=== PATIENT | male | born 1950 | race Caucasian/White ===

== ENCOUNTER → 2016-07-17 | Outpatient (CLI) | payer MEDICARE ==
[~2016-07-17] MED LIST: /WARF5TA OR; ACET-654 PO; ACET65TA OR; ASPI81TA83 PO; CALCCHW12 PO; CALCTAB28 PO; CENTRUM SILVER PO; CIPRO; DOCU10CA PO; ECOT81TA5 PO; FOSAMAX PO; LISI20TA PO; LISI20TA5 PO; MULTCAP PO; MULTIVIT PO; NABUMETONE PO; NABUPOW PO; PERC5TAB6 PO; SIMV20TA2 PO; SIMV40TA2 PO; VICO5TAB OR; VITAMIN B1; VITAMIN B12 PO
== END ==
LOC: M SMT 09:49
PROVIDERS: ATTEND Urology
DX: Z85.46 Personal history of malignant neoplasm of prostate (principal)

== ENCOUNTER → 2016-08-07 | Outpatient (CLI) | payer MEDICARE ==
[~2016-08-07] VITALS: Ht 170.2 cm; Wt 97.5 kg
[~2016-08-07] MED LIST changes: +B6 N1TAB PO; +NABU750T PO; +NEUR100C PO; +NS 1,000 ML IV ONE
--- NOTE | 2016-08-07 09:48 | ROOR ---
Patient Name: Merrick Capps Procedure Date: 08/07/2016 9:32 AM Date of : 1950 Age: 66 Room: [facility] Gender: Male Note Status: Finalized Procedure: Colonoscopy Indications: Screening for colorectal malignant neoplasm Providers: Luigi QUIGLEY MD Referring MD: SONYA CONSTANTINO Requesting Provider: Medicines: Monitored Anesthesia Care Complications: No immediate complications. Procedure: Pre-Anesthesia Assessment: - The heart rate, respiratory rate, oxygen saturations, blood pressure, adequacy of pulmonary ventilation, and response to care were monitored throughout the procedure. The Colonoscope was introduced through the anus and advanced to the cecum, identified by appendiceal orifice and ileocecal valve. The colonoscopy was performed without difficulty. The patient tolerated the procedure well. The quality of the bowel preparation was good. Findings: The perianal and digital rectal examinations were normal. Anal papilla(e) were hypertrophied. Internal hemorrhoids were found during retroflexion. The hemorrhoids were medium-sized. Multiple diverticula were found in the sigmoid colon. The entire examined colon appeared normal on direct and retroflexion views. Impression: - Anal papilla(e) were hypertrophied. - Moderate internal hemorrhoids. - Mild to moderate diverticulosis in the sigmoid colon. - The entire colon is otherwise normal on direct and retroflexion views. - No specimens collected. Recommendation: - Repeat colonoscopy in 5 years for surveillance based on personal history of previous adenomatous polyps. Luigi Quigley MD Luigi QUIGLEY MD 08/07/2016 9:47:31 AM This report has been signed electronically. Number of Addenda: 0 Note Initiated On: 08/07/2016 9:32 AM Estimated Blood Loss: Estimated blood loss: none.
[2016-08-07 10:05] VITALS: BP 133/90
== END | disposition home or self-care (01) ==
LOC: M OPP 08:14
PROVIDERS: ATTEND Internal Medicine Gastroenterology
DX: Z12.11 Encounter for screening for malignant neoplasm of colon (principal); K64.8 Other hemorrhoids; K57.30 Diverticulosis of large intestine without perforation or abscess without bleeding; K62.89 Other specified diseases of anus and rectum; Z86.010 Personal history of colon polyps; I10 Essential (primary) hypertension; E78.5 Hyperlipidemia, unspecified; Z86.19 Personal history of other infectious and parasitic diseases; M19.90 Unspecified osteoarthritis, unspecified site; M54.9 Dorsalgia, unspecified; M81.0 Age-related osteoporosis without current pathological fracture; G62.9 Polyneuropathy, unspecified; Q78.0 Osteogenesis imperfecta; Z85.828 Personal history of other malignant neoplasm of skin; Z85.46 Personal history of malignant neoplasm of prostate; Z87.828 Personal history of other (healed) physical injury and trauma; Z86.79 Personal history of other diseases of the circulatory system; Z91.013 Allergy to seafood; Z79.82 Long term (current) use of aspirin; Z79.899 Other long term (current) drug therapy

== ENCOUNTER → 2017-01-21 | Outpatient (CLI) | payer MEDICARE ==
[~2017-01-21] MED LIST changes: -ACET-654 PO; +ACET1TAB17 PO; -NS 1,000 ML IV ONE; +PERC5TAB12 PO; -PERC5TAB6 PO
== END ==
LOC: M SMT 10:10
PROVIDERS: ATTEND Urology
DX: Z85.46 Personal history of malignant neoplasm of prostate (principal)

== ENCOUNTER → 2017-07-21 | Outpatient (CLI) | payer MEDICARE ==
[2017-07-21 13:48] LABS: PROSTATIC SPECIFIC AG MONITOR 0.05 NG/ML (< 4.0)
== END ==
LOC: M SMT 10:06
DX: Z85.46 Personal history of malignant neoplasm of prostate (principal)
CPT/HCPCS: 84153

== ENCOUNTER 2017-08-23 09:58 | Emergency (ER) | payer MEDICARE | END 2017-08-23 10:46 | disposition home or self-care (01) | LOC: M ED 09:58 | DX: L03.116 Cellulitis of left lower limb (principal); I10 Essential (primary) hypertension; Z85.828 Personal history of other malignant neoplasm of skin; Z85.46 Personal history of malignant neoplasm of prostate; Z90.79 Acquired absence of other genital organ(s); Z87.891 Personal history of nicotine dependence; Z79.82 Long term (current) use of aspirin; Z79.899 Other long term (current) drug therapy; Z91.013 Allergy to seafood | CPT/HCPCS: 99282 ==

== ENCOUNTER → 2017-09-03 | Outpatient (CLI) | payer MEDICARE ==
[2017-09-03 11:23] LABS: TOTAL PROTEIN 7.7 GM/DL (6.4-8.2)
[2017-09-03 11:25] LABS: VITAMIN B12 LEVEL > 2000 PG/ML
[2017-09-03 11:26] LABS: FOLATE 19.1 NG/ML
[2017-09-03 13:01] LABS: ESTIMATED AVERAGE GLUCOSE 114 MG/DL (60-110); HEMOGLOBIN A1c 5.6 %
[2017-09-05 08:08] LABS: CERULOPLASMIN 25.5 mg/dL (16.0-31.0); COPPER PLASMA 106 ug/dL (72-166); MERCURY LEVEL 1.5 ug/L (0.0-14.9)
[2017-09-05 08:08] LABS: LEAD BLOOD ADULT 2 ug/dL (0-19)
[2017-09-07 11:04] LABS: ALBUMIN 4.54 GM/DL (3.29-5.55); ALPHA-1-GLOBULINS 0.31 GM/DL (0.17-0.41); ALPHA-2-GLOBULINS 0.99 GM/DL (0.42-0.99); ALPHA-2-GLOBULINS % 12.9 % (7.1-11.8); BETA-1-GLOBULINS 0.41 GM/DL (0.28-0.60); BETA-1-GLOBULINS % 5.3 % (4.7-7.2); BETA-2-GLOBULINS 0.42 GM/DL (0.19-0.55); BETA-2-GLOBULINS % 5.4 % (3.2-6.5); GAMMA GLOBULIN % 13.4 % (11.1-18.8); GAMMA GLOBULINS 1.03 GM/DL (0.65-1.58)
== END ==
LOC: M SMT 09:13
DX: T56.4X2S Toxic effect of copper and its compounds, intentional self-harm, sequela (principal); E11.40 Type 2 diabetes mellitus with diabetic neuropathy, unspecified; T56.0X2S Toxic effect of lead and its compounds, intentional self-harm, sequela; T56.1X2S Toxic effect of mercury and its compounds, intentional self-harm, sequela
CPT/HCPCS: 82525

== ENCOUNTER → 2018-01-27 | Outpatient (CLI) | payer MEDICARE ==
[2018-01-27 13:32] LABS: PROSTATIC SPECIFIC AG MONITOR 0.1 NG/ML (< 4.0)
== END ==
LOC: M SMT 09:29
DX: Z85.46 Personal history of malignant neoplasm of prostate (principal)
CPT/HCPCS: 84153

== ENCOUNTER → 2018-05-04 | Outpatient (CLI) | payer MEDICARE ==
[~2018-05-04] MED LIST changes: -ACET1TAB17 PO; +ACET1TAB55 PO; +CLEO300C2 PO; +NABU-119 PO; -NABU750T PO; +SULFAMETHOXAZOLE-TMP; +VITA100T96 PO
== END ==
LOC: M SMT 10:14
PROVIDERS: ATTEND Urology
DX: R97.21 Rising PSA following treatment for malignant neoplasm of prostate (principal); Z85.46 Personal history of malignant neoplasm of prostate

== ENCOUNTER → 2018-07-30 | Outpatient (CLI) | payer MEDICARE ==
[~2018-07-30] MED LIST changes: -/WARF5TA OR; -B6 N1TAB PO; +COUM1TAB17 OR; +VITA100T14 PO; +VITA100T77 PO; -VITA100T96 PO
== END ==
LOC: M SMT 11:16
PROVIDERS: ATTEND Urology
DX: Z85.46 Personal history of malignant neoplasm of prostate (principal)

== ENCOUNTER → 2018-11-05 | Outpatient (CLI) | payer MEDICARE ==
[~2018-11-05] MED LIST changes: -LISI20TA PO; +LISI20TA19 PO
== END ==
LOC: M SMT 09:53
PROVIDERS: ATTEND Urology
DX: C61 Malignant neoplasm of prostate (principal)

== ENCOUNTER → 2019-02-02 | Outpatient (REF) | payer MEDICARE ==
[~2019-02-02] MED LIST changes: -SIMV40TA2 PO; +SIMV40TA20 PO
== END ==
LOC: M LABDRAW1 11:31
PROVIDERS: ATTEND Urology
DX: C61 Malignant neoplasm of prostate (principal)

== ENCOUNTER → 2019-02-12 | Outpatient (REF) | payer MEDICARE | LOC: M LAB 10:26 | PROVIDERS: ATTEND Physician Assistant | DX: N39.0 Urinary tract infection, site not specified (principal) ==

== ENCOUNTER → 2019-08-10 | Outpatient (CLI) | payer MEDICARE | LOC: M PLALAB 08:58 | PROVIDERS: ATTEND Urology | DX: Z85.46 Personal history of malignant neoplasm of prostate (principal) ==

== ENCOUNTER → 2020-08-07 | Outpatient (REF) | payer MEDICARE ==
[~2020-08-07] MED LIST changes: -LISI20TA19 PO; +LISI20TA35 PO; -NABU-119 PO; +NABU-73 PO
== END ==
LOC: M PLALAB 13:12
PROVIDERS: ATTEND Urology
DX: Z85.46 Personal history of malignant neoplasm of prostate (principal)

== ENCOUNTER → 2021-02-12 | Outpatient (CLI) | payer MEDICARE | LOC: M PLALAB 12:17 | PROVIDERS: ATTEND Urology | DX: Z85.46 Personal history of malignant neoplasm of prostate (principal) ==

== ENCOUNTER 2021-04-17 14:45 | Inpatient (IN) | payer MEDICARE ==
[~2021-04-17] VITALS: Ht 170.2 cm; Wt 101.4 kg
[2021-04-17] MEDS: GABAPENTIN 300 MG CAP PO SCH ×4 (09:00→22:59)
[~2021-04-17 14:45] MED LIST changes: -CALC1TAB30 PO; -DICL1GEL3 TOP; -GABA600T4 PO; -SIMV20TA22 PO; -VITA500T40 PO; -VITMTA PO
[2021-04-17] MEDS ORDERED: DICL1GEL3 TOP (14:51)
[2021-04-17] MEDS ORDERED: HEPARIN SOD (PORCINE) 5000UNITS/ML 1ML VIAL/SYRINGE IV ONE (20:20)
[2021-04-17] MEDS ORDERED: HEPARIN DRIP 25,000 UNITS in IV 1 EA IV SCH (20:20)
[2021-04-17 20:58] LABS: BASO # 0.1 10^3/uL (0.0-0.2); BASO % 0.5 % (0.0-1.0); HEMOGLOBIN 16.1 g/dl (13.5-17.5); LYMPH # 2.6 10^3/uL (1.5-5.0); LYMPH % 21.6 % (24.0-44.0); MEAN CORPUSCULAR VOLUME 97.3 fl (80.0-96.0); MONO # 1.2 10^3/uL (0.0-0.8); MONO % 9.5 % (2.0-8.0); NEUTROPHILS # 8.2 10^3/uL (1.5-8.5); NEUTROPHILS % 67.9 % (36.0-66.0); PLATELET COUNT, AUTOMATED 103 10^3/uL (150-450); RED BLOOD COUNT 4.73 10^6/uL (4.30-6.10); WHITE BLOOD COUNT 12.1 10^3/uL (4.0-10.0)
[2021-04-17] MEDS: PYRIDOXINE 50 MG TAB PO SCH (21:00)
[2021-04-17 21:08] LABS: INR 1.01; PROTHROMBIN TIME 13.7 SECONDS (12.7-14.5)
[2021-04-17 21:09] LABS: PARTIAL THROMBOPLASTIN TIME 30.2 SECONDS (25.9-37.0)
[2021-04-17 21:21] LABS: ALBUMIN 4.3 GM/DL (3.2-5.2); ALT/SGPT 48 U/L (12-78); BILIRUBIN,DIRECT 0.2 MG/DL (0.0-0.2); BILIRUBIN,TOTAL 0.8 MG/DL (0.2-1.0); BLOOD UREA NITROGEN 25 MG/DL (7-18); CALCIUM LEVEL 9.9 MG/DL (8.8-10.2); CARBON DIOXIDE LEVEL 29 MEQ/L (21-32); CHLORIDE LEVEL 103 MEQ/L (98-107); CREATININE FOR GFR 1.24 MG/DL (0.70-1.30); GLOMERULAR FILTRATION RATE > 60.0 (>42); GLUCOSE, FASTING 98 MG/DL (70-100); POTASSIUM SERUM 4.2 MEQ/L (3.5-5.1); SODIUM LEVEL 138 MEQ/L (136-145); TOTAL PROTEIN 7.7 GM/DL (6.4-8.2)
[2021-04-17 21:47] LABS: RSV AMPLIFICATION NEGATIVE (NEGATIVE)
[2021-04-17] MEDS ORDERED: MOM 30ML SUSPENSION UDC PO PRN (21:55)
[2021-04-17] MEDS ORDERED: ACETAMINOPHEN TAB 650MG DOSE (2X325MG) PO PRN (21:55)
[2021-04-17] MEDS ORDERED: HEPARIN SOD (PORCINE) 5000UNITS/ML 1ML VIAL/SYRINGE IV PRN (21:55)
[2021-04-17] MEDS ORDERED: VITMTA PO (22:16)
[2021-04-17] MEDS ORDERED: VITA500T40 PO (22:16)
[2021-04-17] MEDS ORDERED: CALC1TAB30 PO (22:16)
[2021-04-17] MEDS ORDERED: SIMV20TA22 PO (22:16)
[2021-04-17] MEDS ORDERED: GABA600T4 PO (22:16)
[2021-04-17] MEDS ORDERED: HOME MED LIST COMPLETE! XX SCH (22:20)
[2021-04-17] MEDS: NS 1,000 ML IV SCH (22:48)
[2021-04-17 22:58] LABS: HEMATOCRIT 43.4 % (42.0-52.0); HEMOGLOBIN 15.1 g/dl (13.5-17.5); MEAN CORPUSCULAR HEMOGLOBIN 33.4 pg (27.0-33.0); MEAN CORPUSCULAR HGB CONC 34.8 g/dl (32.0-36.5); PLATELET COUNT, AUTOMATED 103 10^3/uL (150-450); RED BLOOD COUNT 4.52 10^6/uL (4.30-6.10); WHITE BLOOD COUNT 12.3 10^3/uL (4.0-10.0)
[2021-04-17] MEDS: DOCUSATE SODIUM 100MG CAPSULE PO SCH (22:59)
[2021-04-17] MEDS: SIMVASTATIN 20 MG TAB PO SCH (23:00)
[2021-04-17] MEDS: CYANOCOBALAMIN 500 MCG TAB PO SCH (23:00)
[2021-04-17] MEDS: hydroCHLOROthiazide 12.5 MG CAPSULE PO SCH (23:00)
[2021-04-17] MEDS: MULTIVITAMINS/MINERALS THERAP 1 TAB PO SCH (23:02)
[2021-04-18] VITALS (7 sets, daily range): BP systolic 115–164; BP diastolic 57–73
[2021-04-18] MEDS: HEPARIN DRIP 25,000 UNITS in IV 1 EA IV SCH ×2 (03:53→15:08)
[2021-04-18] MEDS: NS 1,000 ML IV SCH (08:00)
[2021-04-18] MEDS: DOCUSATE SODIUM 100MG CAPSULE PO SCH ×2 (09:00→20:25)
[2021-04-18] MEDS: GABAPENTIN 300 MG CAP PO SCH ×3 (09:00→20:25)
[2021-04-18 09:38] LABS: HEMATOCRIT 41.2 % (42.0-52.0); HEMOGLOBIN 14.5 g/dl (13.5-17.5); MEAN CORPUSCULAR HEMOGLOBIN 33.9 pg (27.0-33.0); MEAN CORPUSCULAR HGB CONC 35.2 g/dl (32.0-36.5); MEAN CORPUSCULAR VOLUME 96.3 fl (80.0-96.0); PLATELET COUNT, AUTOMATED 103 10^3/uL (150-450); RED BLOOD COUNT 4.28 10^6/uL (4.30-6.10); WHITE BLOOD COUNT 9.3 10^3/uL (4.0-10.0)
[2021-04-18 10:02] LABS: ALBUMIN 3.8 GM/DL (3.2-5.2); ALT/SGPT 40 U/L (12-78); BILIRUBIN,TOTAL 1.1 MG/DL (0.2-1.0); BLOOD UREA NITROGEN 22 MG/DL (7-18); CARBON DIOXIDE LEVEL 26 MEQ/L (21-32); CHLORIDE LEVEL 104 MEQ/L (98-107); CREATININE FOR GFR 0.95 MG/DL (0.70-1.30); GLOMERULAR FILTRATION RATE > 60.0 (>42); GLUCOSE, FASTING 100 MG/DL (70-100); SODIUM LEVEL 138 MEQ/L (136-145); TOTAL PROTEIN 6.9 GM/DL (6.4-8.2)
[2021-04-18] MEDS ORDERED: diphenhydrAMINE 50MG/ML VIAL (J1200) As Ordered ONE (10:44)
[2021-04-18] MEDS ORDERED: fentaNYL 100 MCG/2 ML INJECTION As Ordered ONE ×2 (10:44→12:47)
[2021-04-18] MEDS ORDERED: LIDOCAINE 1% MDV 20ML VIAL As Ordered ONE (10:45)
[2021-04-18] MEDS ORDERED: ISOVUE-300 61% 50ML VIAL As Ordered ONE (10:45)
[2021-04-18] MEDS ORDERED: MIDAZOLAM INJ 2MG/2ML VIAL (J2250 PER 1MG) As Ordered ONE ×2 (10:45→12:47)
[2021-04-18] MEDS ORDERED: ALTEPLASE 2MG/2ML VIAL As Ordered ONE (13:23)
[2021-04-18] MEDS ORDERED: PROMETHAZINE INJ 25 MG/ML VIAL (J2550) As Ordered ONE (13:50)
[2021-04-18] MEDS ORDERED: HYDROmorphone HCL 2MG/ML 1ML VIAL As Ordered ONE (13:58)
[2021-04-18] MEDS ORDERED: ALTEPLASE 2MG/2ML VIAL ONE (14:41)
[2021-04-18] MEDS ORDERED: ALTEPLASE RECOMBINANT 10 MG in NS 1,000 ML IV ONE (15:00)
[2021-04-18] MEDS ORDERED: ONDANSETRON 4MG/2ML VIAL IV PRN (15:55)
[2021-04-18] MEDS: PERCOCET 5MG/325MG TAB PO PRN (16:30)
[2021-04-18] MEDS: MULTIVITAMINS/MINERALS THERAP 1 TAB PO SCH (20:25)
[2021-04-18] MEDS: hydroCHLOROthiazide 12.5 MG CAPSULE PO SCH (20:25)
[2021-04-18] MEDS: SIMVASTATIN 20 MG TAB PO SCH (20:25)
[2021-04-18] MEDS: PYRIDOXINE 50 MG TAB PO SCH (20:25)
[2021-04-18] MEDS: CYANOCOBALAMIN 500 MCG TAB PO SCH (20:25)
[2021-04-18 21:51] LABS: HEMATOCRIT 40.6 % (42.0-52.0); HEMOGLOBIN 13.7 g/dl (13.5-17.5); MEAN CORPUSCULAR HEMOGLOBIN 33.5 pg (27.0-33.0); MEAN CORPUSCULAR HGB CONC 33.7 g/dl (32.0-36.5); MEAN CORPUSCULAR VOLUME 99.3 fl (80.0-96.0); PLATELET COUNT, AUTOMATED 102 10^3/uL (150-450); RED BLOOD COUNT 4.09 10^6/uL (4.30-6.10); WHITE BLOOD COUNT 9.3 10^3/uL (4.0-10.0)
[2021-04-19] VITALS (18 sets, daily range): BP systolic 104–136; BP diastolic 55–97
[2021-04-19 04:59] LABS: HEMATOCRIT 38.4 % (42.0-52.0); HEMOGLOBIN 13.2 g/dl (13.5-17.5); MEAN CORPUSCULAR HEMOGLOBIN 33.7 pg (27.0-33.0); MEAN CORPUSCULAR HGB CONC 34.4 g/dl (32.0-36.5); RED BLOOD COUNT 3.92 10^6/uL (4.30-6.10)
[2021-04-19 05:09] LABS: PARTIAL THROMBOPLASTIN TIME 61.4 SECONDS (25.9-37.0)
[2021-04-19 05:16] LABS: PLATELET COUNT, AUTOMATED 92 10^3/uL (150-450)
[2021-04-19 05:24] LABS: BLOOD UREA NITROGEN 18 MG/DL (7-18); CALCIUM LEVEL 8.5 MG/DL (8.8-10.2); CARBON DIOXIDE LEVEL 27 MEQ/L (21-32); CHLORIDE LEVEL 103 MEQ/L (98-107); GLOMERULAR FILTRATION RATE > 60.0 (>42); GLUCOSE, FASTING 109 MG/DL (70-100); SODIUM LEVEL 135 MEQ/L (136-145)
[2021-04-19] MEDS: PERCOCET 5MG/325MG TAB PO PRN (08:43)
[2021-04-19] MEDS: GABAPENTIN 300 MG CAP PO SCH ×3 (08:43→20:55)
[2021-04-19] MEDS: DOCUSATE SODIUM 100MG CAPSULE PO SCH ×2 (08:44→20:56)
[2021-04-19] MEDS ORDERED: ENOX40IN3 SC (09:48)
[2021-04-19 10:42] LABS: HEMATOCRIT 38.8 % (42.0-52.0); HEMOGLOBIN 13.4 g/dl (13.5-17.5); MEAN CORPUSCULAR HEMOGLOBIN 33.6 pg (27.0-33.0); MEAN CORPUSCULAR HGB CONC 34.5 g/dl (32.0-36.5); MEAN CORPUSCULAR VOLUME 97.2 fl (80.0-96.0); RED BLOOD COUNT 3.99 10^6/uL (4.30-6.10); WHITE BLOOD COUNT 8.5 10^3/uL (4.0-10.0)
[2021-04-19 10:44] LABS: PLATELET COUNT, AUTOMATED 95 10^3/uL (150-450)
[2021-04-19] MEDS: HEPARIN DRIP 25,000 UNITS in IV 1 EA IV SCH ×2 (11:28→15:18)
[2021-04-19] MEDS: SIMVASTATIN 20 MG TAB PO SCH (20:55)
[2021-04-19] MEDS: PYRIDOXINE 50 MG TAB PO SCH (20:55)
[2021-04-19] MEDS: hydroCHLOROthiazide 12.5 MG CAPSULE PO SCH (20:55)
[2021-04-19] MEDS: MULTIVITAMINS/MINERALS THERAP 1 TAB PO SCH (20:56)
[2021-04-19] MEDS: CYANOCOBALAMIN 500 MCG TAB PO SCH (20:56)
[2021-04-20] VITALS: BP 123/62
[2021-04-20 04:00] VITALS: BP 132/73
[2021-04-20 06:55] LABS: BLOOD UREA NITROGEN 15 MG/DL (7-18); CARBON DIOXIDE LEVEL 27 MEQ/L (21-32); CHLORIDE LEVEL 105 MEQ/L (98-107); CREATININE FOR GFR 0.81 MG/DL (0.70-1.30); GLOMERULAR FILTRATION RATE > 60.0 (>42); GLUCOSE, FASTING 107 MG/DL (70-100); POTASSIUM SERUM 3.9 MEQ/L (3.5-5.1); SODIUM LEVEL 140 MEQ/L (136-145)
[2021-04-20 07:40] VITALS: BP 131/64
[2021-04-20] MEDS ORDERED: PERCOCET PO (08:18)
[2021-04-20] MEDS: DOCUSATE SODIUM 100MG CAPSULE PO SCH (08:23)
[2021-04-20] MEDS: GABAPENTIN 300 MG CAP PO SCH ×2 (08:24→17:06)
[2021-04-20] MEDS ORDERED: ENOXAPARIN 100MG/1ML SYRINGE (J1650 PER 10MG) SC SCH (09:00)
[2021-04-20 12:16] VITALS: BP 120/64
[2021-04-20] MEDS ORDERED: LOVE0.8I SC (13:10)
[2021-04-20] MEDS ORDERED: ELIQ5TAB PO (14:23)
[2021-04-20 16:20] VITALS: BP 134/69
== END 2021-04-20 18:31 | disposition home or self-care (01) | DRG 271 ==
LOC: M ED 14:45 → M ED INP 21:55 → ENRESERV 04-18 14:15 → M PCU 04-18 15:50
PROVIDERS: ADMIT Family Medicine; ATTEND Internal Medicine
PROC: 06H00DZ Insertion of Intraluminal Device into Inferior Vena Cava, Open Approach (ICD-10-PCS; 2021-04-18)
PROC: 06CM3ZZ Extirpation of Matter from Right Femoral Vein, Percutaneous Approach (ICD-10-PCS; principal; 2021-04-18 12:58)
DX: I82.491 Acute embolism and thrombosis of other specified deep vein of right lower extremity (principal); Q78.0 Osteogenesis imperfecta; R60.0 Localized edema; I73.9 Peripheral vascular disease, unspecified; I10 Essential (primary) hypertension; E66.9 Obesity, unspecified; Z68.34 Body mass index [BMI] 34.0-34.9, adult; C61 Malignant neoplasm of prostate; E78.5 Hyperlipidemia, unspecified; Z79.899 Other long term (current) drug therapy; Z91.013 Allergy to seafood

== ENCOUNTER → 2021-04-17 | Outpatient (CLI) | payer MEDICARE ==
[~2021-04-17] MED LIST changes: +CALC1TAB30 PO; +DICL1GEL3 TOP; +GABA600T4 PO; +SIMV20TA22 PO; +VITA500T40 PO; +VITMTA PO
== END ==
LOC: M RAD 13:12
PROVIDERS: ATTEND Physician Assistant
DX: I82.4Y1 Acute embolism and thrombosis of unspecified deep veins of right proximal lower extremity (principal); M79.604 Pain in right leg; R60.0 Localized edema

== ENCOUNTER → 2021-05-07 | Outpatient (POV) | payer MEDICARE ==
[~2021-05-07] VITALS: Ht 167.6 cm; Wt 98.1 kg
[~2021-05-07] MED LIST changes: +CALC1TAB30 PO; +DICL1GEL3 TOP; +ELIQ5TAB PO; +ENOX40IN3 SC; +GABA600T4 PO; +LOVE0.8I SC; +PERCOCET PO; +SIMV20TA22 PO; +VITA500T40 PO; +VITMTA PO
[2021-05-07 08:35] VITALS: BP 128/76
== END ==
LOC: M IRPOV 08:24
PROVIDERS: ATTEND Radiology Diagnostic Radiology
DX: Z45.2 Encounter for adjustment and management of vascular access device (principal); T82.898A Other specified complication of vascular prosthetic devices, implants and grafts, initial encounter; Z86.718 Personal history of other venous thrombosis and embolism

== ENCOUNTER 2021-05-30 18:41 | Observation (INO) | payer MEDICARE ==
[~2021-05-30] VITALS: Ht 170.2 cm; Wt 99.0 kg
[2021-05-30] MEDS: CYANOCOBALAMIN 500 MCG TAB PO SCH (21:00)
[2021-05-30] MEDS: CALCIUM/VITAMIN D 500 MG TAB PO SCH (21:00)
[2021-05-30] MEDS: GABAPENTIN 300 MG CAP PO SCH (21:00)
[2021-05-30] MEDS: MULTIVITAMINS/MINERALS THERAP 1 TAB PO SCH (21:00)
[2021-05-30] MEDS: SIMVASTATIN 20 MG TAB PO SCH (21:00)
[2021-05-30] MEDS ORDERED: ELIQ5TAB PO (22:11)
[2021-05-30] MEDS ORDERED: PERCOCET PO (22:11)
[2021-05-30] MEDS ORDERED: HOME MED LIST COMPLETE! XX SCH (22:15)
[2021-05-30] MEDS ORDERED: ACETAMINOPHEN TAB 650MG DOSE (2X325MG) PO PRN (22:20)
[2021-05-30] MEDS ORDERED: MORPHINE 2 MG/ML 1ML VIAL IV PRN (22:20)
[2021-05-30] MEDS ORDERED: ONDANSETRON 4MG/2ML VIAL IV PRN (22:20)
[2021-05-30] MEDS ORDERED: PERCOCET 5MG/325MG TAB PO PRN (22:20)
[2021-05-30 22:28] LABS: BASO % 0.3 % (0.0-1.0); HEMATOCRIT 44.4 % (42.0-52.0); HEMOGLOBIN 15.7 g/dl (13.5-17.5); LYMPH # 1.9 10^3/uL (1.5-5.0); LYMPH % 15.6 % (24.0-44.0); MEAN CORPUSCULAR HEMOGLOBIN 33.8 pg (27.0-33.0); MEAN CORPUSCULAR HGB CONC 35.4 g/dl (32.0-36.5); MEAN CORPUSCULAR VOLUME 95.5 fl (80.0-96.0); MONO # 0.8 10^3/uL (0.0-0.8); MONO % 6.8 % (2.0-8.0); NEUTROPHILS # 9.2 10^3/uL (1.5-8.5); NEUTROPHILS % 76.7 % (36.0-66.0); PLATELET COUNT, AUTOMATED 157 10^3/uL (150-450); RED BLOOD COUNT 4.65 10^6/uL (4.30-6.10)
[2021-05-30 22:41] LABS: INR 1.09; PROTHROMBIN TIME 14.5 SECONDS (12.7-14.5)
[2021-05-30 22:42] LABS: PARTIAL THROMBOPLASTIN TIME 30.6 SECONDS (25.9-37.0)
[2021-05-30 22:58] LABS: ALBUMIN 4.1 GM/DL (3.2-5.2); ALT/SGPT 47 U/L (12-78); BILIRUBIN,DIRECT 0.2 MG/DL (0.0-0.2); BILIRUBIN,TOTAL 0.6 MG/DL (0.2-1.0); BLOOD UREA NITROGEN 16 MG/DL (7-18); CALCIUM LEVEL 9.3 MG/DL (8.8-10.2); CARBON DIOXIDE LEVEL 28 MEQ/L (21-32); CHLORIDE LEVEL 105 MEQ/L (98-107); CREATININE FOR GFR 1.03 MG/DL (0.70-1.30); GLOMERULAR FILTRATION RATE > 60.0 (>42); GLUCOSE, FASTING 91 MG/DL (70-100); LIPASE 133 U/L (73-393); POTASSIUM SERUM 4.1 MEQ/L (3.5-5.1); SODIUM LEVEL 138 MEQ/L (136-145); TOTAL PROTEIN 7.2 GM/DL (6.4-8.2)
[2021-05-31 00:45] VITALS: BP 135/70
[2021-05-31] MEDS: SIMVASTATIN 20 MG TAB PO SCH (01:31)
[2021-05-31] MEDS: LR 1,000 ML IV SCH ×2 (02:08→15:28)
[2021-05-31 04:00] VITALS: BP 120/60
[2021-05-31] MEDS: GABAPENTIN 300 MG CAP PO SCH ×3 (08:10→20:57)
[2021-05-31 08:58] LABS: BASO % 0.5 % (0.0-1.0); EOS # 0.2 10^3/uL (0.0-0.5); EOS % 2.5 % (0.0-3.0); HEMATOCRIT 40.5 % (42.0-52.0); HEMOGLOBIN 14.2 g/dl (13.5-17.5); LYMPH # 1.9 10^3/uL (1.5-5.0); LYMPH % 21.8 % (24.0-44.0); MEAN CORPUSCULAR HEMOGLOBIN 33.6 pg (27.0-33.0); MEAN CORPUSCULAR HGB CONC 35.1 g/dl (32.0-36.5); MEAN CORPUSCULAR VOLUME 95.7 fl (80.0-96.0); MONO # 0.9 10^3/uL (0.0-0.8); MONO % 10.7 % (2.0-8.0); NEUTROPHILS # 5.5 10^3/uL (1.5-8.5); NEUTROPHILS % 63.6 % (36.0-66.0); PLATELET COUNT, AUTOMATED 146 10^3/uL (150-450); RED BLOOD COUNT 4.23 10^6/uL (4.30-6.10); WHITE BLOOD COUNT 8.6 10^3/uL (4.0-10.0)
[2021-05-31 09:12] LABS: BLOOD UREA NITROGEN 14 MG/DL (7-18); CALCIUM LEVEL 9.2 MG/DL (8.8-10.2); CARBON DIOXIDE LEVEL 29 MEQ/L (21-32); CHLORIDE LEVEL 106 MEQ/L (98-107); CREATININE FOR GFR 0.91 MG/DL (0.70-1.30); GLOMERULAR FILTRATION RATE > 60.0 (>42); GLUCOSE, FASTING 99 MG/DL (70-100); MAGNESIUM LEVEL 2.2 MG/DL (1.8-2.4); POTASSIUM SERUM 3.9 MEQ/L (3.5-5.1); SODIUM LEVEL 138 MEQ/L (136-145)
[2021-05-31 09:20] LABS: INR 1.12; PROTHROMBIN TIME 14.8 SECONDS (12.7-14.5)
[2021-05-31 09:21] LABS: PARTIAL THROMBOPLASTIN TIME 30.2 SECONDS (25.9-37.0)
[2021-05-31 10:14] VITALS: BP 120/70
[2021-05-31 11:30] VITALS: BP 131/70
[2021-05-31 15:41] VITALS: BP 137/72
[2021-05-31] MEDS ORDERED: LIDOCAINE W/EPINEPHRINE 1% 20ML VIAL As Ordered ONE (16:10)
[2021-05-31] MEDS ORDERED: SUGAMMADEX SODIUM 500 MG/5 ML VIAL (BRIDION) As Ordered ONE (16:11)
[2021-05-31] MEDS ORDERED: propofoL 200 MG/20 ML VIAL As Ordered ONE (16:11)
[2021-05-31] MEDS ORDERED: ONDANSETRON 4MG/2ML VIAL As Ordered ONE (16:11)
[2021-05-31] MEDS ORDERED: dexameTHASONE 4 MG/ML 1ML VIAL (J1100 PER 1MG) As Ordered ONE (16:11)
[2021-05-31] MEDS ORDERED: LIDOCAINE 2% 100MG/5ML SDV (FOR ANES.) As Ordered ONE (16:11)
[2021-05-31] MEDS ORDERED: ROCURONIUM BROMIDE 50 MG/5 ML VIAL As Ordered ONE ×2 (16:11→17:58)
[2021-05-31] MEDS ORDERED: fentaNYL 100 MCG/2 ML INJECTION As Ordered ONE (16:11)
[2021-05-31] MEDS ORDERED: MIDAZOLAM INJ 2MG/2ML VIAL (J2250 PER 1MG) As Ordered ONE (16:11)
[2021-05-31] MEDS ORDERED: ACETAMINOPHEN 1000MG 100ML IV BTL (OFIRMEV) (J0131 PER 10MG) As Ordered ONE (16:53)
[2021-05-31] MEDS ORDERED: ceFAZolin 2 GM/D5W 50 ML IV BAG (J0690 PER 500MG) As Ordered ONE (16:56)
[2021-05-31] MEDS ORDERED: PHENYLephrine 500MCG 5ML (100MCG/ML) SYRINGE As Ordered ONE (18:03)
[2021-05-31] MEDS ORDERED: LR 1,000 ML IV SCH ×2 (19:55→20:00)
[2021-05-31] MEDS ORDERED: ONDANSETRON 4MG/2ML VIAL IV PRN ×2 (19:55→20:00)
[2021-05-31] MEDS ORDERED: fentaNYL 100 MCG/2 ML INJECTION IV PRN (19:55)
[2021-05-31] MEDS ORDERED: PERCOCET 5MG/325MG TAB PO PRN ×2 (20:00)
[2021-05-31] MEDS ORDERED: traMADol 50 MG TAB PO PRN (20:00)
[2021-05-31] MEDS ORDERED: MORPHINE 2 MG/ML 1ML VIAL IV PRN (20:00)
[2021-05-31] MEDS ORDERED: ACETAMINOPHEN TAB 650MG DOSE (2X325MG) PO PRN (20:00)
[2021-05-31] MEDS ORDERED: MORPHINE 4 MG/ML 1ML VIAL/SYRINGE IV PRN (20:00)
[2021-05-31] MEDS: HYDROMORPHONE HCL 0.5 MG/ 0.5 ML SYRINGE (J1170 PER 1) IV PRN ×3 (20:09→20:45)
[2021-05-31] MEDS: oxyCODONE 5MG TAB PO PRN ×2 (20:12→20:36)
[2021-05-31 20:45] VITALS: BP 153/73
[2021-05-31] MEDS: CALCIUM/VITAMIN D 500 MG TAB PO SCH (20:57)
[2021-05-31] MEDS: CYANOCOBALAMIN 500 MCG TAB PO SCH (20:57)
[2021-05-31] MEDS: MULTIVITAMINS/MINERALS THERAP 1 TAB PO SCH (20:57)
[2021-06-01] MEDS: ceFAZolin SOD 2 GM in IV 1 EA IV SCH ×2 (00:28→08:20)
[2021-06-01 06:24] LABS: HEMATOCRIT 41.4 % (42.0-52.0); HEMOGLOBIN 14.6 g/dl (13.5-17.5); MEAN CORPUSCULAR HEMOGLOBIN 34.2 pg (27.0-33.0); MEAN CORPUSCULAR HGB CONC 35.3 g/dl (32.0-36.5); PLATELET COUNT, AUTOMATED 160 10^3/uL (150-450); RED BLOOD COUNT 4.27 10^6/uL (4.30-6.10); WHITE BLOOD COUNT 12.8 10^3/uL (4.0-10.0)
[2021-06-01 06:46] LABS: BLOOD UREA NITROGEN 11 MG/DL (7-18); CALCIUM LEVEL 8.6 MG/DL (8.8-10.2); CARBON DIOXIDE LEVEL 31 MEQ/L (21-32); CHLORIDE LEVEL 105 MEQ/L (98-107); CREATININE FOR GFR 0.95 MG/DL (0.70-1.30); GLOMERULAR FILTRATION RATE > 60.0 (>42); GLUCOSE, FASTING 114 MG/DL (70-100); MAGNESIUM LEVEL 2.2 MG/DL (1.8-2.4); PHOSPHORUS LEVEL 3.5 MG/DL (2.5-4.9); POTASSIUM SERUM 4.5 MEQ/L (3.5-5.1); SODIUM LEVEL 140 MEQ/L (136-145)
[2021-06-01 08:00] VITALS: BP 141/79; O2SAT 95
[2021-06-01] MEDS: GABAPENTIN 300 MG CAP PO SCH (08:20)
== END 2021-06-01 11:54 | disposition home health service (06) ==
LOC: M ED 18:41 → M ED INP 18:42 → M PCU 05-31 00:43
PROVIDERS: ADMIT Internal Medicine; ATTEND Internal Medicine
DX: S82.852A Displaced trimalleolar fracture of left lower leg, initial encounter for closed fracture (principal); S63.615A Unspecified sprain of left ring finger, initial encounter; W19.XXXA Unspecified fall, initial encounter; Y92.007 Garden or yard of unspecified non-institutional (private) residence as the place of occurrence of the external cause; Y93.9 Activity, unspecified; Y99.9 Unspecified external cause status; I73.9 Peripheral vascular disease, unspecified; I10 Essential (primary) hypertension; E78.5 Hyperlipidemia, unspecified; Q78.0 Osteogenesis imperfecta; D72.829 Elevated white blood cell count, unspecified; E66.9 Obesity, unspecified; Z79.01 Long term (current) use of anticoagulants; Z79.899 Other long term (current) drug therapy; Z85.46 Personal history of malignant neoplasm of prostate; Z91.013 Allergy to seafood
CPT/HCPCS: 27822; 36415; 73120; 73140; 73600; 73610; 76000; 80048; 80076; 83690; 83735; 84100; 85025; 85027; 85610; 85730; 87798; 96361; 96365; 96366; 97116; 97161; 97530; 99284; C1713; G0378; J0131; J0690; J1100; J1170; J2250; J2370; J2405; J3010

== ENCOUNTER → 2021-06-06 | Outpatient (CLI) | payer MEDICARE | LOC: M SOG 10:39 | PROVIDERS: ATTEND Orthopaedic Surgery Adult Reconstructive Orthopaedic Surgery | DX: Z48.89 Encounter for other specified surgical aftercare (principal) ==

== ENCOUNTER → 2021-06-19 | Outpatient (CLI) | payer MEDICARE | LOC: M SOG 13:23 | PROVIDERS: ATTEND Orthopaedic Surgery Adult Reconstructive Orthopaedic Surgery | DX: S82.852D Displaced trimalleolar fracture of left lower leg, subsequent encounter for closed fracture with routine healing (principal); W18.30XD Fall on same level, unspecified, subsequent encounter ==

== ENCOUNTER → 2021-07-18 | Outpatient (CLI) | payer MEDICARE | LOC: M SOG 10:55 | PROVIDERS: ATTEND Orthopaedic Surgery Adult Reconstructive Orthopaedic Surgery | DX: S82.852D Displaced trimalleolar fracture of left lower leg, subsequent encounter for closed fracture with routine healing (principal) ==

== ENCOUNTER → 2021-08-06 | Outpatient (CLI) | payer MEDICARE | LOC: M PLALAB 10:33 | PROVIDERS: ATTEND Urology | DX: Z85.46 Personal history of malignant neoplasm of prostate (principal) ==

== ENCOUNTER → 2021-08-19 | Outpatient (CLI) | payer MEDICARE | LOC: M SOG 13:59 | PROVIDERS: ATTEND Orthopaedic Surgery Adult Reconstructive Orthopaedic Surgery | DX: S82.852D Displaced trimalleolar fracture of left lower leg, subsequent encounter for closed fracture with routine healing (principal) ==

== ENCOUNTER → 2021-09-19 | Outpatient (CLI) | payer MEDICARE ==
[~2021-09-19] MED LIST changes: +OXYC-517 PO
== END ==
LOC: M LABSMTC 10:42
PROVIDERS: ATTEND Anesthesiology
DX: Z01.812 Encounter for preprocedural laboratory examination (principal); Z11.52 Encounter for screening for COVID-19

== ENCOUNTER 2021-09-24 08:48 | Day surgery (SDC) | payer MEDICARE ==
[~2021-09-24] VITALS: Ht 170.2 cm; Wt 92.1 kg
[~2021-09-24 08:48] MED LIST changes: +LIDOCAINE 2% 100MG/5ML SDV (FOR ANES.) As Ordered ONE; +NS 1,000 ML IV ONE; +propofoL 200 MG/20 ML VIAL As Ordered ONE
[2021-09-24 10:11] VITALS: BP 119/72
== END 2021-09-24 10:12 | disposition home or self-care (01) ==
LOC: M OPP 08:48
PROVIDERS: ATTEND Internal Medicine Gastroenterology
DX: Z86.010 Personal history of colon polyps (principal); D12.2 Benign neoplasm of ascending colon; K57.30 Diverticulosis of large intestine without perforation or abscess without bleeding; K64.8 Other hemorrhoids; I10 Essential (primary) hypertension; E78.5 Hyperlipidemia, unspecified; M19.90 Unspecified osteoarthritis, unspecified site; G62.9 Polyneuropathy, unspecified; Z85.828 Personal history of other malignant neoplasm of skin; Z85.46 Personal history of malignant neoplasm of prostate; Z91.013 Allergy to seafood; Z79.01 Long term (current) use of anticoagulants; Z79.899 Other long term (current) drug therapy; Z80.8 Family history of malignant neoplasm of other organs or systems; Z80.42 Family history of malignant neoplasm of prostate

== ENCOUNTER → 2021-10-14 | Outpatient (CLI) | payer MEDICARE ==
[~2021-10-14] MED LIST changes: -LIDOCAINE 2% 100MG/5ML SDV (FOR ANES.) As Ordered ONE; -NS 1,000 ML IV ONE; -propofoL 200 MG/20 ML VIAL As Ordered ONE
== END ==
LOC: M SOG 08:13
PROVIDERS: ATTEND Orthopaedic Surgery Adult Reconstructive Orthopaedic Surgery
DX: S82.852D Displaced trimalleolar fracture of left lower leg, subsequent encounter for closed fracture with routine healing (principal)

== ENCOUNTER → 2021-11-12 | Outpatient (POV) | payer MEDICARE ==
[~2021-11-12] VITALS: Ht 170.2 cm; Wt 98.1 kg
[2021-11-12 08:05] VITALS: BP 132/87
== END ==
LOC: M IRPOV 07:41
PROVIDERS: ATTEND Radiology Diagnostic Radiology
DX: Z48.812 Encounter for surgical aftercare following surgery on the circulatory system (principal); Z79.01 Long term (current) use of anticoagulants; Z86.718 Personal history of other venous thrombosis and embolism; Z95.828 Presence of other vascular implants and grafts; Z91.013 Allergy to seafood

== ENCOUNTER → 2021-11-13 | Outpatient (CLI) | payer MEDICARE | LOC: M PLALAB 12:05 | PROVIDERS: ATTEND Urology | DX: Z85.46 Personal history of malignant neoplasm of prostate (principal) ==

== ENCOUNTER → 2021-12-04 | Outpatient (CLI) | payer MEDICARE | LOC: M LABSMTC 10:39 | PROVIDERS: ATTEND Anesthesiology | DX: Z01.812 Encounter for preprocedural laboratory examination (principal); Z20.822 Contact with and (suspected) exposure to COVID-19 ==

== ENCOUNTER → 2021-12-09 | Outpatient (CLI) | payer MEDICARE ==
[~2021-12-09] MED LIST changes: +ISOVUE-300 61% 50ML VIAL As Ordered ONE; +LIDOCAINE 1% MDV 20ML VIAL As Ordered ONE; +MIDAZOLAM INJ 2MG/2ML VIAL (J2250 PER 1MG) As Ordered ONE; +diphenhydrAMINE 50MG/ML VIAL (J1200) As Ordered ONE; +fentaNYL 100 MCG/2 ML INJECTION As Ordered ONE
[2021-12-09 10:50] VITALS: BP 128/72
== END ==
LOC: M IRPRO 06:39
PROVIDERS: ATTEND Radiology Diagnostic Radiology
DX: I82.220 Acute embolism and thrombosis of inferior vena cava (principal); Z86.711 Personal history of pulmonary embolism; Z86.718 Personal history of other venous thrombosis and embolism; Z95.828 Presence of other vascular implants and grafts
CPT/HCPCS: 36010; 75825; 99152; C1769; C1887; C1894; J1200; J1644; J2250; J3010; Q9967

== ENCOUNTER → 2021-12-24 | Outpatient (POV) | payer MEDICARE ==
[~2021-12-24] VITALS: Ht 170.2 cm; Wt 97.3 kg
[~2021-12-24] MED LIST changes: -ISOVUE-300 61% 50ML VIAL As Ordered ONE; -LIDOCAINE 1% MDV 20ML VIAL As Ordered ONE; -MIDAZOLAM INJ 2MG/2ML VIAL (J2250 PER 1MG) As Ordered ONE; -diphenhydrAMINE 50MG/ML VIAL (J1200) As Ordered ONE; -fentaNYL 100 MCG/2 ML INJECTION As Ordered ONE
[2021-12-24 07:45] VITALS: BP 144/77
== END ==
LOC: M IRPOV 06:52
PROVIDERS: ATTEND Radiology Diagnostic Radiology
DX: I82.221 Chronic embolism and thrombosis of inferior vena cava (principal); Z48.812 Encounter for surgical aftercare following surgery on the circulatory system; Z95.828 Presence of other vascular implants and grafts; Z79.01 Long term (current) use of anticoagulants

== ENCOUNTER → 2022-02-12 | Outpatient (CLI) | payer MEDICARE | LOC: M PLALAB 14:35 | PROVIDERS: ATTEND Urology | DX: Z85.46 Personal history of malignant neoplasm of prostate (principal) ==

== ENCOUNTER → 2022-04-17 | Outpatient (REF) | payer MEDICARE ==
[2022-04-17 12:55] LABS: HEMATOCRIT 45.9 % (42.0-52.0); HEMOGLOBIN 15.8 g/dl (13.5-17.5); MEAN CORPUSCULAR HEMOGLOBIN 33.5 pg (27.0-33.0); MEAN CORPUSCULAR HGB CONC 34.4 g/dl (32.0-36.5); MEAN CORPUSCULAR VOLUME 97.5 fl (80.0-96.0); PLATELET COUNT, AUTOMATED 171 10^3/uL (150-450); RED BLOOD COUNT 4.71 10^6/uL (4.30-6.10); WHITE BLOOD COUNT 7.7 10^3/uL (4.0-10.0)
[2022-04-17 13:36] LABS: ALBUMIN 4.2 G/DL (3.2-5.2); ALKALINE PHOSPHATASE 74 U/L (46-116); ALT/SGPT 61 U/L (7.0-40); AST/SGOT 57 U/L (<34); BILIRUBIN,TOTAL 0.9 MG/DL (0.3-1.2); BLOOD UREA NITROGEN 19 MG/DL (9-23); CALCIUM LEVEL 9.8 MG/DL (8.3-10.6); CARBON DIOXIDE LEVEL 28 MMOL/L (20-31); CHLORIDE LEVEL 101 MMOL/L (98-107); CHOLESTEROL LEVEL 165 MG/DL (<200); CHOLESTEROL RISK RATIO 4.27 (<5); GLOMERULAR FILTRATION RATE > 60.0 (>42); GLUCOSE, FASTING 89 MG/DL (74-106); HDL CHOLESTEROL 38.6 MG/DL (>40); LDL CHOLESTEROL 96.6 MG/DL (<100); NON-HDL-C 126 MG/DL; POTASSIUM SERUM 4.3 MMOL/L (3.5-5.1); SODIUM LEVEL 138 MMOL/L (136-145); TRIGLYCERIDES LEVEL 149 MG/DL (<150)
== END ==
LOC: M LABDRWAD 12:36
PROVIDERS: ATTEND Physician Assistant
DX: I10 Essential (primary) hypertension (principal); E78.5 Hyperlipidemia, unspecified; I82.4Z1 Acute embolism and thrombosis of unspecified deep veins of right distal lower extremity

== ENCOUNTER → 2022-07-01 | Outpatient (POV) | payer MEDICARE ==
[~2022-07-01] VITALS: Ht 170.2 cm; Wt 100.0 kg
[2022-07-01 10:40] VITALS: BP 129/80
== END ==
LOC: M IRPOV 10:12
PROVIDERS: ATTEND Radiology Diagnostic Radiology
DX: Z45.89 Encounter for adjustment and management of other implanted devices (principal); Z86.718 Personal history of other venous thrombosis and embolism

== ENCOUNTER → 2022-08-05 | Outpatient (REF) | payer MEDICARE | LOC: M SFHCADAM 11:46 | PROVIDERS: ATTEND Urology | DX: C61 Malignant neoplasm of prostate (principal) ==

== ENCOUNTER → 2022-10-16 | Outpatient (REF) | payer MEDICARE ==
[~2022-10-16] MED LIST changes: +DICL100G10 TOP; -DICL1GEL3 TOP
[2022-10-16 18:01] LABS: HEMATOCRIT 46.1 % (42.0-52.0); HEMOGLOBIN 15.8 g/dl (13.5-17.5); MEAN CORPUSCULAR HGB CONC 34.3 g/dl (32.0-36.5); MEAN CORPUSCULAR VOLUME 99.1 fl (80.0-96.0); PLATELET COUNT, AUTOMATED 179 10^3/uL (150-450); RED BLOOD COUNT 4.65 10^6/uL (4.30-6.10); WHITE BLOOD COUNT 9.2 10^3/uL (4.0-10.0)
[2022-10-16 18:22] LABS: ALBUMIN 4.4 G/DL (3.2-5.2); ALKALINE PHOSPHATASE 83 U/L (46-116); ALT/SGPT 41 U/L (7.0-40); AST/SGOT 32 U/L (<34); BILIRUBIN,TOTAL 0.7 MG/DL (0.3-1.2); BLOOD UREA NITROGEN 17 MG/DL (9-23); CALCIUM LEVEL 9.6 MG/DL (8.3-10.6); CARBON DIOXIDE LEVEL 26 MMOL/L (20-31); CHLORIDE LEVEL 103 MMOL/L (98-107); CHOLESTEROL LEVEL 155 MG/DL (<200); CHOLESTEROL RISK RATIO 3.72 (<5); CREATININE FOR GFR 0.96 MG/DL (0.70-1.30); GLOMERULAR FILTRATION RATE > 60.0 (>42); GLUCOSE, FASTING 94 MG/DL (74-106); HDL CHOLESTEROL 41.6 MG/DL (>40); LDL CHOLESTEROL 85.6 MG/DL (<100); NON-HDL-C 113.4 MG/DL; SODIUM LEVEL 138 MMOL/L (136-145); TOTAL PROTEIN 7.4 G/DL (5.7-8.2); TRIGLYCERIDES LEVEL 139 MG/DL (<150)
== END ==
LOC: M LABDRWAD 17:25
PROVIDERS: ATTEND Physician Assistant
DX: E78.5 Hyperlipidemia, unspecified (principal)

== ENCOUNTER → 2023-04-20 | Outpatient (REF) | payer MEDICARE ==
[2023-04-20 17:18] LABS: HEMATOCRIT 50.3 % (42.0-52.0); HEMOGLOBIN 16.9 g/dl (13.5-17.5); MEAN CORPUSCULAR HEMOGLOBIN 33.5 pg (27.0-33.0); MEAN CORPUSCULAR HGB CONC 33.6 g/dl (32.0-36.5); MEAN CORPUSCULAR VOLUME 99.8 fl (80.0-96.0); PLATELET COUNT, AUTOMATED 201 10^3/uL (150-450); RED BLOOD COUNT 5.04 10^6/uL (4.30-6.10); WHITE BLOOD COUNT 8.4 10^3/uL (4.0-10.0)
[2023-04-20 17:41] LABS: ALBUMIN 4.2 G/DL (3.2-5.2); ALKALINE PHOSPHATASE 84 U/L (46-116); ALT/SGPT 40 U/L (7.0-40); AST/SGOT 31 U/L (<34); BILIRUBIN,TOTAL 0.5 MG/DL (0.3-1.2); BLOOD UREA NITROGEN 15 MG/DL (9-23); CALCIUM LEVEL 10.1 MG/DL (8.3-10.6); CARBON DIOXIDE LEVEL 29 MMOL/L (20-31); CHLORIDE LEVEL 101 MMOL/L (98-107); CHOLESTEROL LEVEL 166 MG/DL (<200); CHOLESTEROL RISK RATIO 3.84 (<5); CREATININE FOR GFR 0.94 MG/DL (0.70-1.30); GLOMERULAR FILTRATION RATE > 60.0 (>42); GLUCOSE, FASTING 89 MG/DL (74-106); HDL CHOLESTEROL 43.2 MG/DL (>40); LDL CHOLESTEROL 83.6 MG/DL (<100); NON-HDL-C 122.8 MG/DL; POTASSIUM SERUM 4.5 MMOL/L (3.5-5.1); SODIUM LEVEL 136 MMOL/L (136-145); TOTAL PROTEIN 7.4 G/DL (5.7-8.2); TRIGLYCERIDES LEVEL 196 MG/DL (<150)
[2023-04-20 17:43] LABS: THYROID STIMULATING HORMONE 3.585 uIU/ML (0.55-4.78)
== END ==
LOC: M LABDRWAD 16:07
PROVIDERS: ATTEND Physician Assistant
DX: I10 Essential (primary) hypertension (principal); E78.5 Hyperlipidemia, unspecified

== ENCOUNTER → 2023-06-10 | Outpatient (CLI) | payer MEDICARE | LOC: M RAD 14:58 | PROVIDERS: ATTEND Physician Assistant | DX: T84.498A Other mechanical complication of other internal orthopedic devices, implants and grafts, initial encounter (principal); L97.922 Non-pressure chronic ulcer of unspecified part of left lower leg with fat layer exposed ==

== ENCOUNTER → 2023-06-29 | Outpatient (CLI) | payer MEDICARE | LOC: M SOG 08:06 | PROVIDERS: ATTEND Orthopaedic Surgery | DX: S82.852D Displaced trimalleolar fracture of left lower leg, subsequent encounter for closed fracture with routine healing (principal) ==

== ENCOUNTER → 2023-07-29 | Outpatient (REF) | payer MEDICARE | LOC: M SFHCADAM 10:07 | PROVIDERS: ATTEND Urology | DX: C61 Malignant neoplasm of prostate (principal) ==

== ENCOUNTER → 2023-10-21 | Outpatient (REF) | payer MEDICARE ==
[2023-10-21 18:54] LABS: HEMATOCRIT 46.6 % (42.0-52.0); MEAN CORPUSCULAR HEMOGLOBIN 34.3 pg (27.0-33.0); MEAN CORPUSCULAR HGB CONC 34.3 g/dl (32.0-36.5); PLATELET COUNT, AUTOMATED 176 10^3/uL (150-450); RED BLOOD COUNT 4.66 10^6/uL (4.30-6.10); WHITE BLOOD COUNT 7.5 10^3/uL (4.0-10.0)
[2023-10-21 19:19] LABS: THYROID STIMULATING HORMONE 3.364 uIU/ML (0.55-4.78)
[2023-10-21 19:21] LABS: ALBUMIN 4.3 G/DL (3.2-5.2); ALKALINE PHOSPHATASE 85 U/L (46-116); ALT/SGPT 50 U/L (7.0-40); AST/SGOT 39 U/L (<34); BILIRUBIN,TOTAL 0.7 MG/DL (0.3-1.2); BLOOD UREA NITROGEN 16 MG/DL (9-23); CALCIUM LEVEL 9.8 MG/DL (8.3-10.6); CARBON DIOXIDE LEVEL 29 MMOL/L (20-31); CHLORIDE LEVEL 103 MMOL/L (98-107); CHOLESTEROL LEVEL 160 MG/DL (<200); CHOLESTEROL RISK RATIO 3.82 (<5); CREATININE FOR GFR 1.02 MG/DL (0.70-1.30); GLOMERULAR FILTRATION RATE > 60.0 (>42); GLUCOSE, FASTING 92 MG/DL (74-106); HDL CHOLESTEROL 41.8 MG/DL (>40); LDL CHOLESTEROL 94.6 MG/DL (<100); NON-HDL-C 118.2 MG/DL; POTASSIUM SERUM 4.4 MMOL/L (3.5-5.1); SODIUM LEVEL 138 MMOL/L (136-145); TOTAL PROTEIN 7.4 G/DL (5.7-8.2); TRIGLYCERIDES LEVEL 118 MG/DL (<150)
== END ==
LOC: M LABDRWAD 17:14
PROVIDERS: ATTEND Physician Assistant
DX: I10 Essential (primary) hypertension (principal); E78.5 Hyperlipidemia, unspecified; Z79.01 Long term (current) use of anticoagulants

== ENCOUNTER → 2024-12-07 | Outpatient (CLI) | payer MEDICARE ==
[~2024-12-07] MED LIST changes: +GABA-1490 PO; -GABA600T4 PO; -VITA100T14 PO; +VITA100T69 PO
== END ==
LOC: M RAD 13:41
PROVIDERS: ATTEND Physician Assistant
DX: I87.312 Chronic venous hypertension (idiopathic) with ulcer of left lower extremity (principal); L97.922 Non-pressure chronic ulcer of unspecified part of left lower leg with fat layer exposed

== ENCOUNTER → 2025-01-25 | Outpatient (POV) | payer MEDICARE | LOC: M IRPOV 11:00 | PROVIDERS: ATTEND Radiology Diagnostic Radiology | DX: I87.392 Chronic venous hypertension (idiopathic) with other complications of left lower extremity (principal); Z79.01 Long term (current) use of anticoagulants; Z79.899 Other long term (current) drug therapy; Z87.891 Personal history of nicotine dependence ==

== ENCOUNTER → 2025-02-14 | Outpatient (REF) | payer MEDICARE | LOC: M SFHCADAM 09:35 | PROVIDERS: ATTEND Urology | DX: C61 Malignant neoplasm of prostate (principal) ==